=== PATIENT | male | born 1935 | race African-American/Black ===

== ENCOUNTER 2018-01-29 12:31 | Outpatient (CLI) | payer MEDICARE ==
--- NOTE | 2018-01-29 13:05 | RAD ---
PA AND LATERAL VIEWS CHEST: HISTORY: Dyspnea. FINDINGS: The heart size is normal. No focal areas of consolidation, pneumothoraces, or pleural effusions are seen. There are degenerative changes in the spine. IMPRESSION: No radiographic evidence of acute cardiopulmonary process. POS: [facility]
[2018-01-29 13:16] LABS: Anion Gap 15 mmol/L (10-20); BUN (Urea Nitrogen) 20 mg/dL (8.4-25.7); Calc. Creatinine Clearance 0 mL/min (70-130); Calcium 9.1 mg/dL (7.8-10.44); Carbon Dioxide 25 mmol/L (23-31); Chloride 108 mmol/L (98-107); Estimated GFR-MDRD 54; Glucose 92 mg/dL (83-110); Sodium 144 mmol/L (136-145)
== END 2018-01-29 12:32 | disposition home or self-care (01) ==
LOC: MADLAB 12:31
PROVIDERS: ATTEND Family Medicine
DX: R06.02 Shortness of breath (principal); R60.0 Localized edema
CPT/HCPCS: 36415; 71046; 80048; 83880

== ENCOUNTER 2018-02-03 10:46 | Outpatient (CLI) | payer MEDICARE ==
[2018-02-03 11:31] LABS: Anion Gap 14 mmol/L (10-20); BUN (Urea Nitrogen) 20 mg/dL (8.4-25.7); Calc. Creatinine Clearance 0 mL/min (70-130); Calcium 8.9 mg/dL (7.8-10.44); Carbon Dioxide 25 mmol/L (23-31); Chloride 109 mmol/L (98-107); Estimated GFR-MDRD 51; Glucose 109 mg/dL (83-110); Potassium 4.1 mmol/L (3.5-5.1); Sodium 144 mmol/L (136-145)
== END 2018-02-03 10:47 | disposition home or self-care (01) ==
LOC: MADLAB 10:46
PROVIDERS: ATTEND Family Medicine
DX: R60.0 Localized edema (principal)
CPT/HCPCS: 36415; 80048

== ENCOUNTER 2018-03-19 16:34 | Emergency (ER) | payer MEDICARE ==
[~2018-03-19 16:34] MED LIST: Sodium Chloride 0.9% 1,000 ML BAG ONE
[2018-03-19 17:15] LABS: #Basophils 0.1 thou/uL (0.0-0.2); #Eosinphils 0.3 thou/uL (0.0-0.7); #Lymphocytes 1.3 thou/uL (1.20-3.40); #Monocytes 0.5 thou/uL (0.11-0.59); #Neutrophils 3.9 thou/uL (1.40-6.50); %Basophils 1.1 % (0.0-1.0); %Eosinophils 4.2 % (0.0-10.0); %Lymphocytes 21.1 % (21.0-51.0); %Monocytes 8.8 % (0.0-10.0); %Neutrophils 64.8 % (42.0-75.0); Hemoglobin 12.8 g/dL (14.0-18.0); Mean Corpuscular HGB CONC 33.6 g/dL (32.0-36.0); Mean Corpuscular Hemoglobin 30.2 pg (27.0-31.0); Mean Corpuscular Volume 89.9 fL (78.0-98.0); Mean Platelet Volume 8.4 fL (7.4-10.4); Platelet Count 142 thou/uL (130-400); RBC Distribution Width 12.3 % (11.5-14.5); Red Blood Cell (RBC) Count 4.22 mill/uL (4.70-6.10); White Blood Cell (WBC) Count 6.1 thou/uL (4.8-10.8)
[2018-03-19 17:20] LABS: INR-International Normal Ratio 1.1; PTT 24.2 SEC (22.9-36.1); Prothrombin Time 14.7 SEC (12.0-14.7)
[2018-03-19 17:29] LABS: ALT (SGPT) Less than 7 U/L (8-55); AST (SGOT) 13 U/L (5-34); Albumin 3.9 g/dL (3.4-4.8); Alkaline Phosphatase 90 U/L (40-150); Anion Gap 17 mmol/L (10-20); BUN (Urea Nitrogen) 27 mg/dL (8.4-25.7); Bilirubin, Total 0.7 mg/dL (0.2-1.2); Calc. Creatinine Clearance 0 mL/min (70-130); Calcium 8.9 mg/dL (7.8-10.44); Carbon Dioxide 21 mmol/L (23-31); Chloride 110 mmol/L (98-107); Estimated GFR-MDRD 46; Globulin 2.4 g/dL (2.4-3.5); Glucose 130 mg/dL (83-110); Protein, Total 6.3 g/dL (5.8-8.1); Sodium 144 mmol/L (136-145)
[2018-03-19 17:31] LABS: CKMB 1.5 ng/mL (0-6.6); Troponin I 0.025 ng/mL (< 0.028)
--- NOTE | 2018-03-19 17:43 | RAD ---
AP VIEW OF THE CHEST: 03/19/18 INDICATION: Shortness of breath, chest pain and hypertension. COMPARISON: Prior study dated 01/29/18. IMPRESSION: Low lung volumes. No definite acute cardiopulmonary abnormality. COMMENTS: No consolidation, pleural effusion or pneumothorax is evident. No acute osseous abnormality is noted. The hypoventilation accentuates the cardiac silhouette and pulmonary vasculature. POS: [facility]
== END 2018-03-19 21:06 | disposition short-term general hospital (02) ==
LOC: MADERS 16:34
DX: R07.2 Precordial pain (principal); I11.0 Hypertensive heart disease with heart failure; I50.9 Heart failure, unspecified; G20 Parkinson's disease; E11.9 Type 2 diabetes mellitus without complications; Z87.891 Personal history of nicotine dependence; Z79.899 Other long term (current) drug therapy; Z79.82 Long term (current) use of aspirin
CPT/HCPCS: 71045; 80053; 82553; 83880; 84484; 85025; 85610; 85730; 93005; 96360; 96361; J7050

== ENCOUNTER 2018-04-24 11:13 | Outpatient (CLI) | payer MEDICARE ==
[2018-04-24 11:39] LABS: #Basophils 0.1 thou/uL (0.0-0.2); #Eosinphils 0.2 thou/uL (0.0-0.7); #Lymphocytes 0.7 thou/uL (1.20-3.40); #Monocytes 0.6 thou/uL (0.11-0.59); #Neutrophils 6.6 thou/uL (1.40-6.50); %Basophils 0.8 % (0.0-1.0); %Lymphocytes 8.8 % (21.0-51.0); %Monocytes 6.9 % (0.0-10.0); %Neutrophils 81.5 % (42.0-75.0); Hemoglobin 14.3 g/dL (14.0-18.0); Mean Corpuscular HGB CONC 34.1 g/dL (32.0-36.0); Mean Corpuscular Hemoglobin 31.2 pg (27.0-31.0); Mean Corpuscular Volume 91.3 fL (78.0-98.0); Mean Platelet Volume 8.8 fL (7.4-10.4); Platelet Count 169 thou/uL (130-400); RBC Distribution Width 12.5 % (11.5-14.5); Red Blood Cell (RBC) Count 4.57 mill/uL (4.70-6.10); White Blood Cell (WBC) Count 8.1 thou/uL (4.8-10.8)
[2018-04-24 11:59] LABS: ALT (SGPT) 12 U/L (8-55); AST (SGOT) 16 U/L (5-34); Albumin 4.2 g/dL (3.4-4.8); Alkaline Phosphatase 93 U/L (40-150); Anion Gap 13 mmol/L (10-20); BUN (Urea Nitrogen) 34 mg/dL (8.4-25.7); Bilirubin, Total 1.2 mg/dL (0.2-1.2); Calc. Creatinine Clearance 0 mL/min (70-130); Calcium 9.5 mg/dL (7.8-10.44); Carbon Dioxide 25 mmol/L (23-31); Cardiac Risk 4.1 (Less than 4.5); Chloride 111 mmol/L (98-107); Cholesterol 186 mg/dl (< 200 Desired); Estimated GFR-MDRD 32; Globulin 2.9 g/dL (2.4-3.5); Glucose 75 mg/dL (83-110); HDL Cholesterol 45 mg/dL (>60 Neg Risk); LDL Cholesterol, Calculated 127 mg/dL; Potassium 4.9 mmol/L (3.5-5.1); Protein, Total 7.1 g/dL (5.8-8.1); Sodium 144 mmol/L (136-145); Triglycerides 69 mg/dL (Less than 150)
[2018-04-24 17:32] LABS: Hemoglobin A1c 6.1 % (4.0-6.0)
[2018-04-24 17:46] LABS: Creatinine, Urine 103.7 mg/dL (63-166); Microalbumin Urine 2.5 mg/dL (0.5-50.0); Microalbumin/Creat Ratio 24.1 mg/g (Less than 30)
== END 2018-04-24 11:14 | disposition home or self-care (01) ==
LOC: MADLAB 11:13
DX: I11.0 Hypertensive heart disease with heart failure (principal); I50.9 Heart failure, unspecified; E11.21 Type 2 diabetes mellitus with diabetic nephropathy; E78.5 Hyperlipidemia, unspecified; D64.9 Anemia, unspecified; R53.83 Other fatigue
CPT/HCPCS: 36415; 80053; 80061; 82043; 83036; 83880; 84439; 84443; 85025

== ENCOUNTER 2018-10-29 15:43 | Emergency (ER) | payer MEDICARE ==
[2018-10-29] MEDS ORDERED: Amiodarone 150 MG/3 ML VIAL ONE ×2 (16:50→16:55)
[2018-10-29 16:55] LABS: #Basophils 0.1 thou/uL (0.0-0.2); #Eosinphils 0.1 thou/uL (0.0-0.7); #Lymphocytes 0.8 thou/uL (1.20-3.40); #Monocytes 0.5 thou/uL (0.11-0.59); #Neutrophils 5.2 thou/uL (1.40-6.50); %Basophils 0.8 % (0.0-1.0); %Eosinophils 2.1 % (0.0-10.0); %Lymphocytes 12.4 % (21.0-51.0); %Monocytes 7.5 % (0.0-10.0); %Neutrophils 77.3 % (42.0-75.0); Hemoglobin 12.7 g/dL (14.0-18.0); Mean Corpuscular Hemoglobin 28.7 pg (27.0-31.0); Mean Corpuscular Volume 92.6 fL (78.0-98.0); Mean Platelet Volume 8.8 fL (7.4-10.4); Platelet Count 153 thou/uL (130-400); RBC Distribution Width 13.5 % (11.5-14.5); Red Blood Cell (RBC) Count 4.41 mill/uL (4.70-6.10); White Blood Cell (WBC) Count 6.7 thou/uL (4.8-10.8)
[2018-10-29 17:08] LABS: ALT (SGPT) 10 U/L (8-55); AST (SGOT) 14 U/L (5-34); Alkaline Phosphatase 79 U/L (40-150); Anion Gap 12 mmol/L (10-20); BUN (Urea Nitrogen) 20 mg/dL (8.4-25.7); Bilirubin, Total 0.7 mg/dL (0.2-1.2); Calc. Creatinine Clearance 0 mL/min (70-130); Carbon Dioxide 29 mmol/L (23-31); Chloride 107 mmol/L (98-107); Estimated GFR-MDRD 47; Globulin 2.6 g/dL (2.4-3.5); Glucose 95 mg/dL (83-110); Potassium 4.2 mmol/L (3.5-5.1); Protein, Total 6.6 g/dL (5.8-8.1); Sodium 144 mmol/L (136-145)
--- NOTE | 2018-10-29 18:01 | RAD ---
CHEST ONE VIEW: 10/29/18 HISTORY: Dyspnea. COMPARISON: Radiograph 03/19/18. FINDINGS: Defibrillator pad projects over the right hemithorax. The lungs are without focal air space consolida tion, pneumothorax or effusion. The cardiac silhouette and mediastinal contours are within normal mcintyre its. No acute osseous abnormality. IMPRESSION: No acute intrathoracic abnormality. POS: [facility]
== END 2018-10-29 17:36 | disposition short-term general hospital (02) ==
LOC: MADERS 15:43
DX: I47.2 Ventricular tachycardia (principal)
CPT/HCPCS: 36415; 71045; 80053; 83880; 84484; 85025; 93005; 96365; 96376; 99292; J0282

== ENCOUNTER 2019-01-05 01:20 | Emergency (ER) | payer MEDICARE ==
[2019-01-05 01:55] LABS: #Basophils 0.1 thou/uL (0.0-0.2); #Eosinphils 0.2 thou/uL (0.0-0.7); #Monocytes 0.5 thou/uL (0.11-0.59); #Neutrophils 5.1 thou/uL (1.40-6.50); %Basophils 0.8 % (0.0-1.0); %Eosinophils 2.2 % (0.0-10.0); %Lymphocytes 14.8 % (21.0-51.0); %Monocytes 7.7 % (0.0-10.0); %Neutrophils 74.5 % (42.0-75.0); Hemoglobin 13.1 g/dL (14.0-18.0); Mean Corpuscular Hemoglobin 29.6 pg (27.0-31.0); Mean Corpuscular Volume 89.9 fL (78.0-98.0); Mean Platelet Volume 10.6 fL (7.4-10.4); Platelet Count 143 thou/uL (130-400); RBC Distribution Width 12.8 % (11.5-14.5); Red Blood Cell (RBC) Count 4.41 mill/uL (4.70-6.10); White Blood Cell (WBC) Count 6.8 thou/uL (4.8-10.8)
[2019-01-05] MEDS ORDERED: Nitroglycerin 2% Ointment 1 INCH/1 GM Packet ONE (02:06)
[2019-01-05] MEDS ORDERED: Aspirin Chewable 81 MG TAB ONE (02:06)
[2019-01-05 02:11] LABS: ALT (SGPT) 7 U/L (8-55); AST (SGOT) 15 U/L (5-34); Albumin 4.2 g/dL (3.4-4.8); Alkaline Phosphatase 89 U/L (40-150); Anion Gap 13 mmol/L (10-20); BUN (Urea Nitrogen) 28 mg/dL (8.4-25.7); Bilirubin, Total 0.6 mg/dL (0.2-1.2); Calc. Creatinine Clearance 0 mL/min (70-130); Calcium 8.8 mg/dL (7.8-10.44); Carbon Dioxide 24 mmol/L (23-31); Chloride 108 mmol/L (98-107); Estimated GFR-MDRD 40; Globulin 2.7 g/dL (2.4-3.5); Glucose 122 mg/dL (83-110); Potassium 4.1 mmol/L (3.5-5.1); Protein, Total 6.9 g/dL (5.8-8.1); Sodium 141 mmol/L (136-145)
[2019-01-05] MEDS ORDERED: Furosemide 20 MG/2 ML VIAL ONE (02:29)
--- NOTE | 2019-01-05 09:00 | RAD ---
PORTABLE CHEST 1 VIEW: DATE: 01/05/2019. TIME: 2:06 a.m. HISTORY: Shortness of breath. Dyspnea. FINDINGS: Comparison is made with the exam of 10/29/2018. The heart size is normal. No focal areas of consolidation, pneumothoraces, or pleural effusions are seen. IMPRESSION: No acute process. POS: [facility]
== END 2019-01-05 02:40 | disposition short-term general hospital (02) ==
LOC: MADERS 01:20
DX: I20.0 Unstable angina (principal); I10 Essential (primary) hypertension; E87.70 Fluid overload, unspecified; E11.9 Type 2 diabetes mellitus without complications; G20 Parkinson's disease; M10.9 Gout, unspecified; N40.0 Benign prostatic hyperplasia without lower urinary tract symptoms; Z87.891 Personal history of nicotine dependence; Z79.82 Long term (current) use of aspirin; Z79.84 Long term (current) use of oral hypoglycemic drugs; Z79.899 Other long term (current) drug therapy
CPT/HCPCS: 71045; 80053; 83880; 84484; 85025; 93005; 96374; J1940

== ENCOUNTER 2019-03-13 21:09 | Emergency (ER) | payer MEDICARE ==
[2019-03-13 22:03] LABS: #Basophils 0.1 thou/uL (0.0-0.2); #Lymphocytes 0.6 thou/uL (1.20-3.40); #Monocytes 0.4 thou/uL (0.11-0.59); #Neutrophils 9.9 thou/uL (1.40-6.50); %Basophils 0.6 % (0.0-1.0); %Eosinophils 0.3 % (0.0-10.0); %Lymphocytes 5.5 % (21.0-51.0); %Monocytes 3.6 % (0.0-10.0); Hemoglobin 12.7 g/dL (14.0-18.0); Mean Corpuscular HGB CONC 32.2 g/dL (32.0-36.0); Mean Corpuscular Hemoglobin 29.2 pg (27.0-31.0); Mean Corpuscular Volume 90.6 fL (78.0-98.0); Mean Platelet Volume 8.7 fL (7.4-10.4); Platelet Count 125 thou/uL (130-400); RBC Distribution Width 13.4 % (11.5-14.5); Red Blood Cell (RBC) Count 4.34 mill/uL (4.70-6.10)
[2019-03-13 22:19] LABS: ALT (SGPT) 18 U/L (8-55); AST (SGOT) 18 U/L (5-34); Albumin 4.3 g/dL (3.4-4.8); Alkaline Phosphatase 88 U/L (40-150); Anion Gap 16 mmol/L (10-20); BUN (Urea Nitrogen) 31 mg/dL (8.4-25.7); Bilirubin, Total 0.9 mg/dL (0.2-1.2); Calc. Creatinine Clearance 0 mL/min (70-130); Calcium 8.9 mg/dL (7.8-10.44); Carbon Dioxide 23 mmol/L (23-31); Chloride 105 mmol/L (98-107); Estimated GFR-MDRD 36; Globulin 2.8 g/dL (2.4-3.5); Glucose 159 mg/dL (83-110); Lipase 7 U/L (8-78); Protein, Total 7.1 g/dL (5.8-8.1); Sodium 140 mmol/L (136-145)
[2019-03-13 22:34] LABS: Bilirubin Negative (Negative); Blood, Urine Trace (Negative); Clarity Slightly Cloudy (Clear); Glucose, Urine (Dipstick) Negative (Negative); Leukocyte Negative (Negative); Nitrite Negative (Negative); Protein, Urine (Dipstick) Negative (Neg-Trace); Urobilinogen 0.2 mg/dL (Less than 2)
[2019-03-13 22:37] LABS: Squamous Epithelial 0-3 HPF (0-3); WBC/HPF 0-3 HPF (0-3)
[2019-03-13 22:38] LABS: Bacteria/HPF None Seen HPF (None Seen); Sperm/HPF 1+ HPF (None Seen)
--- NOTE | 2019-03-13 23:17 | CT ---
EXAM: ABDOMEN AND PELVIC CT SCAN WITHOUT IV CONTRAST: 03/13/19 HISTORY: Abdominal pain. The lung bases appear clear. Patient is somewhat rotated. The visualized liver, gallbladder, pancreas and spleen and adrenal glands are unremarkable as evaluated without IV contrast. The kidneys are jumana ewhat small bilaterally with a tiny nonobstructing left renal calculus. No evidence for acute obstruc ting calculus. Moderate gas and fecal material throughout the colon including a dilated fecal fill ed rectum. No CT evidence for acute appendicitis. No abscess, adenopathy or abnormal fluid collectio n within the abdomen or pelvis. IMPRESSION: Tiny nonobstructing left renal calculus. Small kidneys bilaterally. No evidence of obstructing calculus. Fecal material and gas in the colon with dilated fecal filled rectum. Small fat containing inguinal hernias. No evidence for other significant acute process. POS: [facility]
== END 2019-03-13 23:46 | disposition home or self-care (01) ==
LOC: MADERS 21:09
DX: K59.00 Constipation, unspecified (principal); R33.9 Retention of urine, unspecified; G20 Parkinson's disease; M19.90 Unspecified osteoarthritis, unspecified site; I11.0 Hypertensive heart disease with heart failure; I50.9 Heart failure, unspecified; Z87.891 Personal history of nicotine dependence
CPT/HCPCS: 36415; 51702; 74176; 80053; 81003; 81015; 83690; 85025

== ENCOUNTER 2019-07-20 03:01 | Emergency (ER) | payer MEDICARE ==
[2019-07-20 03:58] LABS: ALT (SGPT) 14 U/L (8-55); AST (SGOT) 22 U/L (5-34); Albumin 4.2 g/dL (3.4-4.8); Alkaline Phosphatase 90 U/L (40-110); Anion Gap 17 mmol/L (10-20); BUN (Urea Nitrogen) 20 mg/dL (8.4-25.7); Bilirubin, Total 0.6 mg/dL (0.2-1.2); Calc. Creatinine Clearance 0 mL/min (70-130); Carbon Dioxide 21 mmol/L (23-31); Chloride 111 mmol/L (98-107); Estimated GFR-MDRD 45; Globulin 2.8 g/dL (2.4-3.5); Glucose 74 mg/dL (83-110); Potassium 4.5 mmol/L (3.5-5.1); Sodium 144 mmol/L (136-145)
[2019-07-20 04:02] LABS: %Basophils 0.9 % (0.0-1.0); %Eosinophils 2.6 % (0.0-10.0); %Lymphocytes 10.6 % (21.0-51.0); %Monocytes 8.3 % (0.0-10.0); %Neutrophils 77.6 % (42.0-75.0); Hemoglobin 12.6 g/dL (14.0-18.0); Mean Corpuscular HGB CONC 30.2 g/dL (32.0-36.0); Mean Corpuscular Hemoglobin 28.7 pg (27.0-31.0); Mean Platelet Volume 10.5 fL (7.4-10.4); Platelet Count 114 thou/uL (130-400); RBC Distribution Width 13.3 % (11.5-14.5); Red Blood Cell (RBC) Count 4.38 mill/uL (4.70-6.10); White Blood Cell (WBC) Count 7.7 thou/uL (4.8-10.8)
[2019-07-20 04:09] LABS: Band 5 % (5-11); Eosinophils 1 % (0-10); Lymphocytes 10 % (21-51); MDiff Complete? YES; Monocytes 3 % (0-10); Neutrophil 81 % (42-75)
[2019-07-20 05:02] LABS: #Basophils 0.1 thou/uL (0.0-0.2); #Eosinphils 0.2 thou/uL (0.0-0.7); #Lymphocytes 0.8 thou/uL (1.20-3.40); #Monocytes 0.6 thou/uL (0.11-0.59)
[2019-07-20] MEDS ORDERED: Enoxaparin Sodium 80 MG/0.8 ML SYRINGE ONE (08:11)
== END 2019-07-20 10:55 | disposition short-term general hospital (02) ==
LOC: MADERS 03:01
DX: M79.89 Other specified soft tissue disorders (principal); I11.0 Hypertensive heart disease with heart failure; I50.9 Heart failure, unspecified; E11.9 Type 2 diabetes mellitus without complications; N40.0 Benign prostatic hyperplasia without lower urinary tract symptoms; M10.9 Gout, unspecified; Z87.891 Personal history of nicotine dependence; Z79.899 Other long term (current) drug therapy; Z79.01 Long term (current) use of anticoagulants; Z79.84 Long term (current) use of oral hypoglycemic drugs; Z79.82 Long term (current) use of aspirin; Z95.5 Presence of coronary angioplasty implant and graft
CPT/HCPCS: 80053; 85025; 85379; 96372; 99284; J1650

== ENCOUNTER 2019-09-06 20:58 | Emergency (ER) | payer MEDICARE ==
--- NOTE | 2019-09-06 21:47 | CT ---
CT Brain WO Con HISTORY: Head injury. COMPARISON: None. FINDINGS: There is generalized ventricular and sulcal prominence. There are no signs of intracerebral hemorrhage or extra-axial fluid collections. Chronic white matter changes are seen. The mastoid air cells and visualized sinuses are clear. IMPRESSION: No acute intracranial abnormalities.
== END 2019-09-06 21:57 | disposition home or self-care (01) ==
LOC: MADERS 20:58
DX: S00.03XA Contusion of scalp, initial encounter (principal); E11.9 Type 2 diabetes mellitus without complications; I11.0 Hypertensive heart disease with heart failure; I50.9 Heart failure, unspecified; G20 Parkinson's disease; F02.80 Dementia in other diseases classified elsewhere, unspecified severity, without behavioral disturbance, psychotic disturbance, mood disturbance, and anxiety; Z87.891 Personal history of nicotine dependence; Z79.82 Long term (current) use of aspirin; Z79.01 Long term (current) use of anticoagulants; Z79.899 Other long term (current) drug therapy; Z79.84 Long term (current) use of oral hypoglycemic drugs; W22.8XXA Striking against or struck by other objects, initial encounter; Y92.009 Unspecified place in unspecified non-institutional (private) residence as the place of occurrence of the external cause
CPT/HCPCS: 70450

== ENCOUNTER 2019-09-14 20:04 | Emergency (ER) | payer MEDICARE ==
[~2019-09-14 20:04] MED LIST changes: -Sodium Chloride 0.9% 1,000 ML BAG ONE; +Sodium Chloride Irrig Solution 250 ML BOT ONE
[2019-09-14] MEDS ORDERED: Acetaminophen/Codeine 30-300mg Tablet ONE (20:24)
[2019-09-14] MEDS ORDERED: Bacitracin 1 PK ONE (20:24)
[2019-09-14] MEDS ORDERED: Lidocaine 1% w/Epinephrine 1:100K 20 ML VIAL ONE (20:25)
[2019-09-14] MEDS ORDERED: Cephalexin 500 MG CAP ONE (20:25)
== END 2019-09-14 20:38 | disposition home or self-care (01) ==
LOC: MADERS 20:04
DX: S61.411A Laceration without foreign body of right hand, initial encounter (principal); E11.9 Type 2 diabetes mellitus without complications; M10.9 Gout, unspecified; I11.0 Hypertensive heart disease with heart failure; I50.9 Heart failure, unspecified; N40.0 Benign prostatic hyperplasia without lower urinary tract symptoms; Z87.891 Personal history of nicotine dependence; Z79.82 Long term (current) use of aspirin; Z79.899 Other long term (current) drug therapy; W26.9XXA Contact with unspecified sharp object(s), initial encounter
CPT/HCPCS: 12001

== ENCOUNTER 2019-10-05 12:33 | Emergency (ER) | payer MEDICARE ==
--- NOTE | 2019-10-05 12:58 | CT ---
CT Brain WO Con: 10/05/2019 12:45 PM CLINICAL HISTORY: History of fall and on blood thinners. IMAGING TECHNIQUE: Multiple CT images were obtained of the brain without IV contrast. COMPARISON: Prior examination dated September 06, 2019 FINDINGS: Brain: No acute infarct or hemorrhage is evident. No midline shift. Ventricles: Normal. No hydrocephalus. Skull: Intact. Visualized Paranasal sinuses: Clear. Mastoid air cells:Clear. Extracranial soft tissues:Normal. IMPRESSION: No acute intracranial abnormality.
== END 2019-10-05 13:20 | disposition home or self-care (01) ==
LOC: MADERS 12:33
DX: S00.93XA Contusion of unspecified part of head, initial encounter (principal); S80.01XA Contusion of right knee, initial encounter; I11.0 Hypertensive heart disease with heart failure; I50.9 Heart failure, unspecified; E11.9 Type 2 diabetes mellitus without complications; M10.9 Gout, unspecified; G20 Parkinson's disease; F02.80 Dementia in other diseases classified elsewhere, unspecified severity, without behavioral disturbance, psychotic disturbance, mood disturbance, and anxiety; Z87.891 Personal history of nicotine dependence; Z79.01 Long term (current) use of anticoagulants; Z79.02 Long term (current) use of antithrombotics/antiplatelets; Z79.899 Other long term (current) drug therapy; Z79.51 Long term (current) use of inhaled steroids; Z79.82 Long term (current) use of aspirin; Z79.84 Long term (current) use of oral hypoglycemic drugs; W17.89XA Other fall from one level to another, initial encounter; Y92.000 Kitchen of unspecified non-institutional (private) residence as the place of occurrence of the external cause
CPT/HCPCS: 70450

== ENCOUNTER 2019-10-14 00:22 | Emergency (ER) | payer MEDICARE ==
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
== END 2019-10-14 02:02 | disposition home or self-care (01) ==
LOC: MADERS 00:22
DX: S09.90XA Unspecified injury of head, initial encounter (principal); I50.9 Heart failure, unspecified; E11.9 Type 2 diabetes mellitus without complications; G20 Parkinson's disease; I10 Essential (primary) hypertension; Z87.891 Personal history of nicotine dependence; M10.9 Gout, unspecified; W17.89XA Other fall from one level to another, initial encounter
CPT/HCPCS: 70450

== ENCOUNTER 2020-09-05 11:31 | Emergency (ER) | payer MEDICARE ==
[2020-09-05] MEDS ORDERED: Lidocaine 1% 20 ML MDV ONE (12:18)
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
== END 2020-09-05 16:15 | disposition home or self-care (01) ==
LOC: MADERS 11:31
DX: S01.21XA Laceration without foreign body of nose, initial encounter (principal); S61.412A Laceration without foreign body of left hand, initial encounter; N40.0 Benign prostatic hyperplasia without lower urinary tract symptoms; I11.0 Hypertensive heart disease with heart failure; I50.9 Heart failure, unspecified; E11.9 Type 2 diabetes mellitus without complications; G20 Parkinson's disease; M10.9 Gout, unspecified; Z87.891 Personal history of nicotine dependence; Y04.0XXA Assault by unarmed brawl or fight, initial encounter
CPT/HCPCS: 12001; 12013

== ENCOUNTER 2020-09-11 14:18 | Emergency (ER) | payer MEDICARE | END 2020-09-11 14:59 | disposition home or self-care (01) | LOC: MADERS 14:18 | DX: S01.21XD Laceration without foreign body of nose, subsequent encounter (principal); G20 Parkinson's disease; G30.9 Alzheimer's disease, unspecified; N40.0 Benign prostatic hyperplasia without lower urinary tract symptoms; I11.0 Hypertensive heart disease with heart failure; I50.9 Heart failure, unspecified; E11.9 Type 2 diabetes mellitus without complications; M10.9 Gout, unspecified; Z87.891 Personal history of nicotine dependence; Y04.0XXD Assault by unarmed brawl or fight, subsequent encounter ==

== ENCOUNTER 2020-09-16 15:06 | Emergency (ER) | payer MEDICARE | END 2020-09-16 15:42 | disposition home or self-care (01) | LOC: MADERS 15:06 | DX: S61.412D Laceration without foreign body of left hand, subsequent encounter (principal); M10.9 Gout, unspecified; E11.9 Type 2 diabetes mellitus without complications; I11.0 Hypertensive heart disease with heart failure; I50.9 Heart failure, unspecified; Z87.891 Personal history of nicotine dependence ==

== ENCOUNTER 2020-10-10 06:12 | Emergency (ER) | payer MEDICARE ==
--- NOTE | 2020-10-10 07:55 | CT ---
PRELIMINARY REPORT/[facility]/EMERGENCY AFTER HOURS PROCEDURE EXAM: CT Head Without Intravenous Contrast. CLINICAL HISTORY: ER PATIENT; FALL EARLIER; NO LOC TECHNIQUE: Axial computed tomography images of the head/brain without intravenous contrast. COMPARISON: CT\SR - CT BRAIN WO CON - 10/14/2019 01:00 AM HAND COLLATOR FINDINGS: BRAIN: No acute intraparenchymal hemorrhage. No mass lesion. No CT evidence for acute territorial infarct. N o midline shift or extra-axial collection. Hypodensity of the white matter is nonspecific but likely represents chronic microvascular ischemic d isease. VENTRICLES: No hydrocephalus. Volume loss. ORBITS: The globes are intact. SINUSES AND MASTOIDS: The paranasal sinuses and mastoid air cells are clear. SOFT TISSUES: No significant facial or scalp soft tissue swelling evident. No radiopaque foreign body is seen. BONES: No acute skull fracture. IMPRESSION: Chronic parenchymal changes. No acute intracranial abnormality. ELECTRONICALLY SIGNED BY: Vivian Lopez MD Oct 10, 2020 7:21:24 AM HAND COLLATOR This report is intended for review by the ordering physician only, in accordance of law. If you recei ve this report in error, please call [facility] at [phone]. FINAL REPORT Exam: Head CT without contrast HISTORY: Fall. Pain. COMPARISON: 10/14/2019 FINDINGS: Hemorrhage: No intraparenchymal hemorrhage or extra-axial hematoma. Brain parenchyma: Cortical carreon-white matter differentiation is preserved. No mass effect or midline shift. Basilar cisterns are patent.Chronic small vessel ischemic changes of white matter, unchanged Ventricular system: Ventricles and sulci are patent and symmetric. Calvarium: Intact. Sinuses and mastoid air cells: Adequate aeration. IMPRESSION: 1. This report is in agreement with initial report by [facility]. 2. No acute intracranial process. Transcribed Date/Time: 10/10/2020 8:28 AM
--- NOTE | 2020-10-10 07:56 | RAD ---
Supine frontal chest radiograph: 10/10/2020 COMPARISON: 01/05/2019 HISTORY: Fall FINDINGS: Supine imaging limits assessment for pneumothorax and pleural fluid. Heart and mediastinal contours demonstrate a grossly unchanged appearance. Coronary arterial calcification and/or stent material is present. There is no focal consolidation or alveolar edema. IMPRESSION: No acute findings.
--- NOTE | 2020-10-10 07:57 | CT ---
PRELIMINARY REPORT/[facility]/EMERGENCY AFTER HOURS PROCEDURE EXAM: CT Cervical Spine Without Intravenous Contrast. CLINICAL HISTORY: ER PATIENT; FALL EARLIER; NO LOC TECHNIQUE: Axial computed tomography images of the cervical spine without intravenous contrast. Sagittal and cor onal reformations performed. COMPARISON: None provided. FINDINGS: BONES: No acute fracture or focal osseous lesion. Fusion of C5-C7 vertebral bodies. Bony alignment is anatomic. DISCS / DEGENERATIVE CHANGES: Multilevel degenerative changes of the cervical spine with intervertebral disc space narrowing, disc osteophyte complexes and facet and uncovertebral hypertrophy with spinal canal and neuroforaminal stenosis extending from C2/3 through C4/5 and C6/7. SOFT TISSUES: No prevertebral soft tissue swelling. No apical pneumothorax. IMPRESSION: No acute cervical spine abnormality. ELECTRONICALLY SIGNED BY: Vivian Lopez MD Oct 10, 2020 7:24:13 AM HANDS HANGER This report is intended for review by the ordering physician only, in accordance of law. If you recei ve this report in error, please call [facility] at [phone]. FINAL REPORT Final interpretation Cervical spine CT without contrast: 10/10/2020 COMPARISON: None. HISTORY: Fall, evaluate for fracture. FINDINGS: The visualized paranasal sinuses and mastoid air cells are grossly unremarkable. The C1 ring appears intact. The craniocervical junction, the atlantoaxial interspace, and the cervicothoracic junction demonstrat e no acute findings. The visualized lung apices appear unremarkable. There is multilevel cervical spine bilateral facet and uncovertebral osteophyte formation. The occipi bettina condyles, the dens, and the C1-2 articulation demonstrate no acute findings. There is multilevel disc space narrowing with degenerative endplate change as well as anterior and po sterior osteophyte, most prominent at the C3-4 and C4-5 levels. No acute fracture or evidence of dislocation is apparent. IMPRESSION: Multilevel cervical spine degenerative change. No acute fracture or dislocation of the cervical spine . Transcribed Date/Time: 10/10/2020 8:25 AM
--- NOTE | 2020-10-10 08:06 | RAD ---
EXAM: XR Pelvis AP STANDARD PROVIDED CLINICAL HISTORY: Pain FINDINGS: There is no evidence for fracture or other acute osseous abnormality. Alignment appears anatomic. Anny nt spaces appear preserved. IMPRESSION: No evidence for an acute osseous abnormality. If there is persistent clinical concern, conservative m anagement and follow-up imaging advised.
== END 2020-10-10 10:24 | disposition home or self-care (01) ==
LOC: MADERS 06:12
DX: S00.83XA Contusion of other part of head, initial encounter (principal); G30.9 Alzheimer's disease, unspecified; F02.80 Dementia in other diseases classified elsewhere, unspecified severity, without behavioral disturbance, psychotic disturbance, mood disturbance, and anxiety; L53.9 Erythematous condition, unspecified; E11.9 Type 2 diabetes mellitus without complications; N40.0 Benign prostatic hyperplasia without lower urinary tract symptoms; I11.0 Hypertensive heart disease with heart failure; I50.9 Heart failure, unspecified; M10.9 Gout, unspecified; Z87.891 Personal history of nicotine dependence; Z79.82 Long term (current) use of aspirin; Z79.899 Other long term (current) drug therapy; W17.89XA Other fall from one level to another, initial encounter
CPT/HCPCS: 70450; 71045; 72125; 72170

== ENCOUNTER 2021-01-30 12:55 | Emergency (ER) | payer MEDICARE ==
[2021-01-30 13:39] LABS: #Eosinphils 0.1 thou/uL (0.0-0.7); #Lymphocytes 0.9 thou/uL (1.20-3.40); #Monocytes 0.5 thou/uL (0.11-0.59); #Neutrophils 7.4 thou/uL (1.40-6.50); %Basophils 0.4 % (0.0-1.0); %Eosinophils 0.7 % (0.0-10.0); %Lymphocytes 10.1 % (21.0-51.0); %Monocytes 5.7 % (0.0-10.0); %Neutrophils 83.1 % (42.0-75.0); Hemoglobin 5.4 g/dL (14.0-18.0); Mean Corpuscular HGB CONC 30.1 g/dL (32.0-36.0); Mean Corpuscular Hemoglobin 30.3 pg (27.0-31.0); Mean Corpuscular Volume 100.6 fL (78.0-98.0); Mean Platelet Volume 10.8 fL (7.4-10.4); Platelet Count 119 thou/uL (130-400); Red Blood Cell (RBC) Count 1.82 mill/uL (4.70-6.10); White Blood Cell (WBC) Count 8.5 thou/uL (4.8-10.8)
[2021-01-30] MEDS ORDERED: Sodium Chloride 0.9% 1,000 ML ONE (13:39)
[2021-01-30 13:40] LABS: ALT (SGPT) 7 U/L (8-55); AST (SGOT) 16 U/L (5-34); Albumin 2.6 g/dL (3.4-4.8); Alkaline Phosphatase 130 U/L (40-110); Anion Gap 14 mmol/L (10-20); BUN (Urea Nitrogen) 41 mg/dL (8.4-25.7); Bilirubin, Total 0.4 mg/dL (0.2-1.2); Calc. Creatinine Clearance 0 mL/min (70-130); Carbon Dioxide 26 mmol/L (23-31); Chloride 109 mmol/L (98-107); Globulin 2.4 g/dL (2.4-3.5); Glucose 132 mg/dL (83-110); Potassium 4.6 mmol/L (3.5-5.1); Sodium 144 mmol/L (136-145)
[2021-01-30 13:50] LABS: Anisocytosis SLIGHT = 6-15 cells (100X) (0-5/hpf); Microcytosis SLIGHT = 6-15 cells (100X) (0-5/hpf); Platelet Morphology Comment Appears Decreased
[2021-01-30 14:04] LABS: CKMB 5.4 ng/mL (0-6.6)
[2021-01-30 14:35] LABS: INR-International Normal Ratio 1.2; PTT 33.3 sec (22.9-36.1)
== END 2021-01-30 17:03 | disposition short-term general hospital (02) ==
LOC: MADERS 12:55
DX: K92.2 Gastrointestinal hemorrhage, unspecified (principal); D50.0 Iron deficiency anemia secondary to blood loss (chronic); R79.89 Other specified abnormal findings of blood chemistry; G30.9 Alzheimer's disease, unspecified; M10.9 Gout, unspecified; E11.9 Type 2 diabetes mellitus without complications; N40.0 Benign prostatic hyperplasia without lower urinary tract symptoms; I11.0 Hypertensive heart disease with heart failure; I50.9 Heart failure, unspecified; G20 Parkinson's disease; Z87.891 Personal history of nicotine dependence
CPT/HCPCS: 36430; 70450; 71045; 80053; 82553; 83880; 84484; 85025; 85610; 85730; 86850; 86900; 86901; 86920; 93005; 94760; P9016; 36415; J7050

== ENCOUNTER 2021-03-31 14:47 | Emergency (ER) | payer MEDICARE ==
[2021-03-31 15:29] LABS: INR-International Normal Ratio 1.4; Prothrombin Time 17.2 sec (12.0-14.7)
[2021-03-31] MEDS ORDERED: Dextrose 50% Abboject 50 ML SYRINGE ONE (15:30)
[2021-03-31] MEDS ORDERED: Sodium Chloride 0.9% 1,000 ML ONE (15:30)
[2021-03-31 15:42] LABS: #Eosinphils 0.1 thou/uL (0.0-0.7); #Lymphocytes 0.5 thou/uL (1.20-3.40); #Monocytes 0.2 thou/uL (0.11-0.59); #Neutrophils 4.9 thou/uL (1.40-6.50); %Basophils 0.4 % (0.0-1.0); %Eosinophils 2.2 % (0.0-10.0); %Lymphocytes 8.1 % (21.0-51.0); %Monocytes 4.2 % (0.0-10.0); %Neutrophils 85.1 % (42.0-75.0); ALT (SGPT) Less than 7 U/L (8-55); AST (SGOT) 19 U/L (5-34); Albumin 3.2 g/dL (3.4-4.8); Alkaline Phosphatase 111 U/L (40-110); Anion Gap 17 mmol/L (10-20); Anisocytosis SLIGHT = 6-15 cells (100X) (0-5/hpf); BUN (Urea Nitrogen) 17 mg/dL (8.4-25.7); Bilirubin, Total 0.9 mg/dL (0.2-1.2); Calc. Creatinine Clearance 0 mL/min (70-130); Calcium 9.1 mg/dL (7.8-10.44); Carbon Dioxide 25 mmol/L (23-31); Chloride 111 mmol/L (98-107); Globulin 2.9 g/dL (2.4-3.5); Glucose 67 mg/dL (83-110); Hemoglobin 12.8 g/dL (14.0-18.0); Hypochromia SLIGHT = 6-15 cells (100X) (0-5/hpf); Lipase 4 U/L (8-78); MDiff Complete? YES; Macrocytosis SLIGHT = 6-15 cells (100X) (0-5/hpf); Mean Corpuscular Hemoglobin 28.8 pg (27.0-31.0); Mean Corpuscular Volume 99.3 fL (78.0-98.0); Mean Platelet Volume 11.8 fL (7.4-10.4); Platelet Count 86 thou/uL (130-400); Platelet Morphology Comment Appears Decreased; Potassium 4.6 mmol/L (3.5-5.1); Protein, Total 6.1 g/dL (5.8-8.1); RBC Distribution Width 15.2 % (11.5-14.5); Red Blood Cell (RBC) Count 4.44 mill/uL (4.70-6.10); Sodium 148 mmol/L (136-145); White Blood Cell (WBC) Count 5.8 thou/uL (4.8-10.8)
[2021-03-31 16:12] LABS: CKMB 8.4 ng/mL (0-6.6)
[2021-03-31] MEDS ORDERED: Furosemide 40 MG/4 ML VIAL ONE (16:39)
[2021-03-31] MEDS ORDERED: Aspirin Chewable 81 MG TAB ONE (16:39)
[2021-03-31 16:45] LABS: Bilirubin Negative (Negative); Blood, Urine Negative (Negative); Clarity Slightly Cloudy (Clear); Glucose, Urine (Dipstick) Negative (Negative); Ketone, Urine Negative (Negative); Leukocyte Negative (Negative); Nitrite Negative (Negative); Protein, Urine (Dipstick) Negative (Neg-Trace); Specific Gravity, Urine 1.025 (1.005-1.030); Urobilinogen 0.2 mg/dL (Less than 2)
[2021-03-31] MEDS ORDERED: Lorazepam 1 MG TAB ONE (18:34)
== END 2021-03-31 19:27 | disposition short-term general hospital (02) ==
LOC: MADERS 14:47
DX: R41.82 Altered mental status, unspecified (principal); I11.0 Hypertensive heart disease with heart failure; I50.9 Heart failure, unspecified; G30.9 Alzheimer's disease, unspecified; F02.80 Dementia in other diseases classified elsewhere, unspecified severity, without behavioral disturbance, psychotic disturbance, mood disturbance, and anxiety; R79.89 Other specified abnormal findings of blood chemistry; D69.6 Thrombocytopenia, unspecified; E11.9 Type 2 diabetes mellitus without complications; N40.0 Benign prostatic hyperplasia without lower urinary tract symptoms; M10.9 Gout, unspecified; Z87.891 Personal history of nicotine dependence
CPT/HCPCS: 36416; 51701; 70450; 71045; 80053; 81003; 82553; 83605; 83690; 83880; 84443; 84484; 85025; 85610; 85730; 93005; 96374; 96375; J1940; J7050